=== PATIENT | female | born 1950 | race Caucasian/White ===

== ENCOUNTER → 2018-08-27 10:09 | Outpatient (REF) | payer BC, SELFPAY ==
[2018-08-27 13:32] LABS: Basophils % 0.8 % (0.1-2.0); Eosinophils # 0.2 K/mm3 (0.0-0.4); Eosinophils % 3.8 % (0.1-12.0); Hematocrit 43.3 % (37.0-47.0); Hemoglobin 13.6 g/dL (12.2-16.2); Lymphocytes # 1.8 K/mm3 (0.7-4.5); Lymphocytes % 32.3 K/mm3 (10-50); Mean Corpuscular HGB Conc 31.3 g/dL (31.8-35.4); Mean Corpuscular Hemoglobin 28.9 pg (27.0-31.2); Mean Corpuscular Volume 92.3 fl (81-99); Mean Platelet Volume 8.8 fl (7.4-10.4); Monocytes # 0.3 K/mm3 (0.1-1.0); Monocytes % 5.5 % (1.7-9.3); Neutrophils # 3.2 K/mm3 (1.8-7.8); Neutrophils % 57.6 % (37.0-80.0); Platelet Count 273 K/mm3 (142-424); Red Cell Distribution Width 13.9 % (11.5-17.5); White Blood Count 5.5 K/mm3 (4.8-10.8)
[2018-08-27 13:48] LABS: Alanine Aminotransferase 41 U/L (12-78); Albumin Level 3.7 gm/dL (3.4-5.0); Alkaline Phosphatase 96 U/L (46-116); Anion Gap 10.8 mEq/L (5-15); Aspartate Amino Transferase 30 U/L (15-37); Bilirubin,Total 0.4 mg/dL (0.2-1.0); Blood Urea Nitrogen 12 mg/dL (7-18); Calcium 9.2 mg/dL (8.5-10.1); Carbon Dioxide 28 mmol/L (21.0-32.0); Chloride 109 mmol/L (98-107); Chol/HDL Ratio 4.2 (1-3.5); Cholesterol 234 mg/dL (140-200); Creatinine,Serum 0.69 mg/dL (0.55-1.02); Estimated Glomerular Filt Rate 85 ml/min (>60); Free T4 (Free Thyroxine) 0.94 ng/dl (0.76-1.46); GFR (African American) 103 ML/MIN (>60); Globulin 3.6 gm/dl (1.3-3.2); Glucose 95 mg/dL (74-106); HDL Cholesterol 56 mg/dL (29-89); LDL Cholesterol 155 mg/dL (0-130); Potassium 4.8 mmoL/L (3.5-5.1); Sodium 143 mmol/L (136-145); Thyroid Stimulating Hormone 1.84 uIU/ml (0.358-3.740); Total Protein,Serum 7.3 gm/dL (6.4-8.2); Triglycerides 117 mg/dL (30-200); VLDL Cholesterol 23 mg/dL (0-40)
== END ==
LOC: LAB 10:09
PROVIDERS: PCP Emergency Medicine; Visit Provider Emergency Medicine
DX: R53.83 Other fatigue (principal)
CPT/HCPCS: 80053; 80061; 84439; 84443; 85025

== ENCOUNTER → 2019-07-23 08:39 | Outpatient (CLI) | payer BC, SELFPAY ==
--- NOTE | 2019-07-23 08:39 | MM_ITS ---
PROCEDURE: MM DIG SCREENING MAMM BI W/CAD CLINICAL INDICATION: Routine Screening Mammogram There is a history of breast cancer in patient's sister diagnosed at age 35 COMPARISON: DMSB DIG MAMM-SCREEN LYNDON from 02/24/2015 DMSB DIG MAMM-SCREEN LYNDON from 03/01/2016 DMSB DIG MAMM-SCREEN LYNDON W/CAD from 03/14/2017 TECHNIQUE: Standard CC and MLO images were obtained. R2 CAD reviewed. FINDINGS: Moderate diffuse fibroglandular densities are seen in both breasts and the findings are mostly bilateral and symmetrical. However there is a small asymmetric density deep lateral right breast best seen on the CC view which was seen previously but has increased in size slightly since the previous 2 exams. It is difficult to definitely localized on the MLO view. Recommend the patient return for spot compression CC view and 90 degree lateral view and ultrasound for additional evaluation. There are no suspicious microcalcifications. IMPRESSION: Moderate breast density with possible interval change in asymmetric density right breast BI-RAD Category: 0 Need Additional Imaging Evaluation FOLLOW-UP: IMM Immediate Follow-up Recommended (A letter has been sent to the patient regarding results of the study.) Dictated by: Dr. Andre Irizarry MD 07/24/2019 16:25 <Electronically signed by Dr. Andre Irizarry MD in [place]> 07/24/2019 16:25
== END ==
PROVIDERS: PCP Emergency Medicine; Visit Provider Obstetrics & Gynecology
DX: Z12.31 Encounter for screening mammogram for malignant neoplasm of breast (principal)
CPT/HCPCS: 77067

== ENCOUNTER → 2019-08-02 12:39 | Outpatient (CLI) | payer BC, SELFPAY ==
--- NOTE | 2019-08-02 12:40 | MM_ITS ---
PROCEDURE: MM DIG MAMM DX UNILAT RT CAD CLINICAL INDICATION: Dx Mammogram Right Breast- Abnormal Mamm COMPARISON: DMSB DIGITAL MAMM-SCREEN BILATERAL from 10/15/2012 DMDXUR DIG MAMM-DX UNILATERAL-RT from 10/25/2012 DMSB DIG MAMM-SCREEN LYNDON from 11/11/2013 DMSB DIG MAMM-SCREEN LYNDON from 02/24/2015 DMSB DIG MAMM-SCREEN LYNDON from 03/01/2016 DMSB DIG MAMM-SCREEN LYNDON W/CAD from 03/14/2017 MM DIG SCREENING MAMM BI W/CAD from 07/23/2019 US BREAST RT COMPLETE from 08/02/2019 TECHNIQUE: Standard CC and MLO images were obtained. Spot-compression MLO and CC views were obtained as well. R2 CAD reviewed. FINDINGS: Scattered fibroglandular densities are seen in the central portion of the breast. Again noted is a small benign-appearing nodular density central portion of the breast best seen on the CC view but also seen on the spot MLO view and this has benign features. Ultrasound performed the same date showed no ultrasound correlation. No other abnormality is noted IMPRESSION: Fibrofatty parenchyma with no suspicious lesion seen and no abnormality on ultrasound examination, recommend the patient return to normal yearly screening mammography BI-RAD Category: 2 Benign Finding(s) FOLLOW-UP: 1YR 1 Year Follow-up (A letter has been sent to the patient regarding results of the study.) Dictated by: Dr. Andre Irizarry MD 08/09/2019 09:[address] Andre Irizarry MD in [place] 08/09/2019 09:16
--- NOTE | 2019-08-02 12:40 | US_ITS ---
PROCEDURE: US BREAST RT COMPLETE CLINICAL INDICATION: US Right Breast- Abnormal Mammogram COMPARISON: DMSB DIG MAMM-SCREEN LYNDON W/CAD from 03/14/2017 MM DIG SCREENING MAMM BI W/CAD from 07/23/2019 MM DIG MAMM DX UNILAT RT CAD from 08/02/2019 FINDINGS: Please see combined mammogram and ultrasound report of 08/02/2019. A 6 mm cyst is noted at 6 o'clock which may account for the mammographic abnormality which appears benign IMPRESSION: Benign findings, no evidence of malignancy Dictated by: Ayaz Tracy MD 08/13/2019 16:35 Electronically signed by Ayaz Tracy MD in [place] 08/13/2019 16:35
== END ==
PROVIDERS: PCP Emergency Medicine; Visit Provider Obstetrics & Gynecology
DX: R92.8 Other abnormal and inconclusive findings on diagnostic imaging of breast (principal)
CPT/HCPCS: 76641; 77065

== ENCOUNTER → 2020-05-19 08:15 | Outpatient (CLI) | payer BC, SELFPAY ==
--- NOTE | 2020-05-19 08:24 | XR_ITS ---
PROCEDURE: XR LUMBAR SPINE 2-3V CLINICAL INDICATION: lbp with rle radic pain to quadricep Low back pain COMPARISON: No exams were available for comparison FINDINGS: There are 6 lumbar segments. There is degenerative disc disease is at L4-5 at L5-L6. No fracture or dislocation. No lytic or blastic change. There is some mild angulation involving the lower sacrum which could be due to an old fracture. IMPRESSION: Degenerative changes with possible old sacral fracture Dictated by: Ayaz Tracy MD 05/19/2020 16:32 Electronically signed by Ayaz Tracy MD in [place] 05/19/2020 16:32
== END ==
PROVIDERS: PCP Family Medicine; Visit Provider Family Medicine
DX: M54.5 Low back pain (principal)
CPT/HCPCS: 72100

== ENCOUNTER → 2020-08-04 08:39 | Outpatient (CLI) | payer BC, SELFPAY ==
--- NOTE | 2020-08-04 08:43 | MM_ITS ---
PROCEDURE: MM DIG SCREENING MAMM BI W/CAD Digital Breast Tomosynthesis Included CLINICAL INDICATION: SCREENING There is a history of breast cancer patient's sister. There has been previous cyst aspiration left breast with benign findings COMPARISON: MG DMSB DIG MAMM-SCREEN LYNDON W/CAD from 03/14/2017 MG MM DIG SCREENING MAMM BI W/CAD from 07/23/2019 MG MM DIG MAMM DX UNILAT RT CAD from 08/02/2019 TECHNIQUE: Standard CC and MLO images and 3D Tomosynthesis was obtained. R2 CAD reviewed. FINDINGS: Mild to moderate fibroglandular densities are seen in the central portions of both breast and the findings are fairly symmetrical bilaterally. There is a stable small benign appearing nodular density lower outer quadrant right breast. There is no suspicious lesion and no suspicious microcalcifications. IMPRESSION: Fibrofatty parenchyma with no suspicious lesions seen BI-RAD Category: 2 Benign Finding(s) FOLLOW-UP: 1YR 1 Year Follow-up (A letter has been sent to the patient regarding results of the study.) Dictated by: Dr. Andre Irizarry MD 08/07/2020 08:13 Dr. Andre Irizarry MD in [place] 08/07/2020 08:13
== END ==
PROVIDERS: PCP Emergency Medicine; Visit Provider Family Medicine
DX: Z12.31 Encounter for screening mammogram for malignant neoplasm of breast (principal)
CPT/HCPCS: 77063; 77067

== ENCOUNTER → 2020-09-01 17:38 | Outpatient (CLI) | payer BC, SELFPAY ==
[2020-09-01 18:30] LABS: Basophils # 0.1 K/mm3 (0-0.2); Eosinophils # 0.3 K/mm3 (0.0-0.4); Eosinophils % 4.5 % (0.1-12.0); Hemoglobin 13.8 g/dL (12.2-16.2); Lymphocytes # 1.9 K/mm3 (0.7-4.5); Lymphocytes % 29.9 % (10-50); Mean Corpuscular HGB Conc 31.4 g/dL (31.8-35.4); Mean Corpuscular Hemoglobin 29.6 pg (27.0-31.2); Mean Corpuscular Volume 94.3 fl (81-99); Mean Platelet Volume 10.3 fl (7.4-10.4); Monocytes # 0.4 K/mm3 (0.1-1.0); Monocytes % 7.1 % (1.7-9.3); Neutrophils # 3.6 K/mm3 (1.8-7.8); Neutrophils % 57.5 % (37.0-80.0); Platelet Count 267 K/mm3 (142-424); Red Blood Count 4.66 M/mm3 (4.20-5.40); Red Cell Distribution Width 13.4 % (11.5-17.5); White Blood Count 6.3 K/mm3 (4.8-10.8)
[2020-09-01 18:38] LABS: Alanine Aminotransferase 23 U/L (12-78); Albumin Level 4.4 g/dl (3.5-5.0); Albumin/Globulin Ratio 1.5 (1.1-1.8); Alkaline Phosphatase 95 U/L (38-126); Anion Gap 13.4 mEq/L (5-15); Aspartate Amino Transferase 34 U/L (14-36); Bilirubin,Total 0.6 mg/dl (0.2-1.3); Blood Urea Nitrogen 13 mg/dl (7-17); Calcium 9.8 mg/dl (8.4-10.2); Carbon Dioxide 27 mmol/L (22.0-30.0); Chloride 106 mmol/L (98-107); Chol/HDL Ratio 2.8 (1-3.5); Cholesterol 156 mg/dl (140-200); Estimated Glomerular Filt Rate 100 ml/min (>60); GFR (African American) 121 ML/MIN (>60); Glucose 97 mg/dl (74-100); HDL Cholesterol 55 mg/dl (40-60); Potassium 5.4 mmoL/L (3.5-5.1); Sodium 141 mmol/L (136-145); Total Protein,Serum 7.4 g/dl (6.3-8.2); Triglycerides 95 mg/dl (30-150); VLDL Cholesterol 19 mg/dL (0-40)
[2020-09-01 18:50] LABS: Direct LDL Cholesterol 75.87 mg/dL (100-129)
[2020-09-01 18:54] LABS: 25-OH Vitamin D, Total 59.1 ng/mL (30-100)
[2020-09-01 18:55] LABS: Free T4 (Free Thyroxine) 1.33 ng/dl (0.78-2.19)
[2020-09-01 19:08] LABS: Thyroid Stimulating Hormone 1.33 uIU/mL (0.465-4.68)
== END ==
PROVIDERS: Visit Provider Emergency Medicine
DX: E55.9 Vitamin D deficiency, unspecified (principal); R69 Illness, unspecified
CPT/HCPCS: 80053; 80061; 82306; 84439; 84443; 85025

== ENCOUNTER → 2020-09-23 08:53 | Outpatient (CLI) | payer BC, SELFPAY ==
--- NOTE | 2020-09-23 08:59 | XR_ITS ---
PROCEDURE: XR FOOT WT BEARING RT 3V CLINICAL INDICATION: pain COMPARISON: CR FTL3 FOOT-LT-3 VIEWS from 04/26/2013 CR FTR3 FOOT-RT-3 VIEWS from 04/26/2013 FINDINGS: Prior bunionectomy at 1st metatarsal distally. Cortical screw is present. Hypertrophic changes are present at the distal aspect of the 1st meta tarsal. The joint spaces are well-preserved. No significant degenerative/arthritic changes. No erosive changes evident. Other findings:None. IMPRESSION: Postsurgical changes with hypertrophy of the distal aspect of the 1st metatarsal Dictated by: Ayaz Tracy MD 09/23/2020 12:45 Ayaz Tracy MD in [place] 09/23/2020 12:45
--- NOTE | 2020-09-23 08:59 | XR_ITS ---
PROCEDURE: XR FOOT WT BEARING LT 3V CLINICAL INDICATION: pain COMPARISON: CR FTL3 FOOT-LT-3 VIEWS from 04/26/2013 CR FTR3 FOOT-RT-3 VIEWS from 04/26/2013 FINDINGS: No fracture or dislocation. No lytic or blastic change. There is normal mineralization. There has been prior surgery at the distal aspect of the 1st metatarsal with [address] Prior bunionectomy. No calcaneal spur evident. There is borderline pes planus. Other findings:None. IMPRESSION: Borderline pes planus with postsurgical changes Dictated by: Ayaz Tracy MD 09/23/2020 12:43 Ayaz Tracy MD in [place] 09/23/2020 12:43
== END ==
PROVIDERS: PCP Emergency Medicine; Visit Provider Podiatrist
DX: M79.672 Pain in left foot (principal); M79.671 Pain in right foot
CPT/HCPCS: 73630

== ENCOUNTER → 2021-07-09 11:46 | Outpatient (CLI) | payer BC, SELFPAY | PROVIDERS: PCP Emergency Medicine; Visit Provider Emergency Medicine | DX: Z20.822 Contact with and (suspected) exposure to COVID-19 (principal) | CPT/HCPCS: U0003 ==

== ENCOUNTER → 2021-12-28 16:00 | Outpatient (CLI) | payer MEDICARE, SELFPAY ==
[2021-12-28 18:58] LABS: Basophils # 0.1 K/mm3 (0-0.2); Basophils % 1.9 % (0.1-2.0); Eosinophils # 0.3 K/mm3 (0.0-0.4); Eosinophils % 3.8 % (0.1-12.0); Hematocrit 45.1 % (37.0-47.0); Hemoglobin 14.2 g/dL (12.2-16.2); Lymphocytes # 1.3 K/mm3 (0.7-4.5); Lymphocytes % 19.2 % (10-50); Mean Corpuscular HGB Conc 31.5 g/dL (31.8-35.4); Mean Corpuscular Hemoglobin 29.5 pg (27.0-31.2); Mean Corpuscular Volume 93.8 fl (81-99); Mean Platelet Volume 11.2 fl (7.4-10.4); Monocytes # 0.4 K/mm3 (0.1-1.0); Monocytes % 5.6 % (1.7-9.3); Neutrophils # 4.8 K/mm3 (1.8-7.8); Neutrophils % 69.4 % (37.0-80.0); Platelet Count 274 K/mm3 (142-424); Red Blood Count 4.81 M/mm3 (4.20-5.40); Red Cell Distribution Width 14.3 % (11.5-17.5)
[2021-12-28 19:40] LABS: Alanine Aminotransferase 25 U/L (12-78); Albumin Level 4.4 g/dl (3.5-5.0); Albumin/Globulin Ratio 1.5 (1.1-1.8); Alkaline Phosphatase 80 U/L (38-126); Anion Gap 12.1 mEq/L (5-15); Aspartate Amino Transferase 39 U/L (14-36); Bilirubin,Total 0.6 mg/dl (0.2-1.3); Blood Urea Nitrogen 13 mg/dl (7-17); Calcium 9.5 mg/dl (8.4-10.2); Carbon Dioxide 25 mmol/L (22.0-30.0); Chloride 107 mmol/L (98-107); Cholesterol 164 mg/dl (140-200); Estimated Glomerular Filt Rate 122 ml/min (>60); GFR (African American) 148 ML/MIN (>60); Globulin 2.9 g/dL (1.3-3.2); Glucose 89 mg/dl (74-100); HDL Cholesterol 54 mg/dl (40-60); Potassium 4.1 mmoL/L (3.5-5.1); Sodium 140 mmol/L (136-145); Total Protein,Serum 7.3 g/dl (6.3-8.2); Triglycerides 82 mg/dl (30-150); VLDL Cholesterol 16 mg/dL (0-40)
[2021-12-28 19:51] LABS: Direct LDL Cholesterol 89.27 mg/dL (100-129)
== END ==
PROVIDERS: Visit Provider Family Medicine
DX: E55.9 Vitamin D deficiency, unspecified (principal); E78.5 Hyperlipidemia, unspecified
CPT/HCPCS: 80053; 80061; 85025

== ENCOUNTER → 2022-06-08 15:34 | Outpatient (CLI) | payer MEDICARE, SELFPAY ==
--- NOTE | 2022-06-08 15:39 | XR_ITS ---
FINAL REPORT CLINICAL HISTORY: pain COMPARISON: 09/23/2020 FINDINGS: RIGHT FOOT Three views were obtained. There is no acute fracture or dislocation. There is postoperative change in the 1st metatarsal. There are mild degenerative changes of the 1st metatarsophalangeal joint. Findings are overall stable since previous. No soft tissue abnormality is identified. IMPRESSION: Degenerative and postoperative change, stable. Reviewed, Interpreted and Dictated by Stanton Simeon III, MD Transcribed by Debbie Guajardo Authenticated and [facility]
--- NOTE | 2022-06-08 15:39 | XR_ITS ---
FINAL REPORT CLINICAL HISTORY: pain COMPARISON: 09/23/2020 FINDINGS: LEFT FOOT Three views were obtained. There is no acute fracture or dislocation. There is postoperative change in the 1st metatarsal. There is mild degenerative change of the 1st metatarsophalangeal joint. The bony alignment appears stable. No soft tissue abnormality is identified. IMPRESSION: Degenerative and postoperative change, stable. Reviewed, Interpreted and Dictated by Stanton Simeon III, MD Transcribed by Debbie Guajardo Authenticated and [facility]
== END ==
PROVIDERS: PCP Family Medicine; Visit Provider Podiatrist
DX: L84 Corns and callosities (principal); M79.671 Pain in right foot; M79.672 Pain in left foot; Z98.890 Other specified postprocedural states
CPT/HCPCS: 73630

== ENCOUNTER → 2023-02-07 10:09 | Outpatient (CLI) | payer MEDICARE, SELFPAY ==
[2023-02-07 13:38] LABS: Basophils # 0.1 K/mm3 (0-0.2); Basophils % 1.2 % (0.1-2.0); Eosinophils # 0.2 K/mm3 (0.0-0.4); Hematocrit 42.6 % (37.0-47.0); Hemoglobin 13.8 g/dL (12.2-16.2); Lymphocytes # 1.5 K/mm3 (0.7-4.5); Mean Corpuscular HGB Conc 32.3 g/dL (31.8-35.4); Mean Corpuscular Hemoglobin 29.4 pg (27.0-31.2); Mean Corpuscular Volume 91.1 fl (81-99); Mean Platelet Volume 9.8 fl (7.4-10.4); Monocytes # 0.4 K/mm3 (0.1-1.0); Monocytes % 7.6 % (1.7-9.3); Neutrophils # 3.3 K/mm3 (1.8-7.8); Neutrophils % 60.4 % (37.0-80.0); Platelet Count 285 K/mm3 (142-424); Red Blood Count 4.68 M/mm3 (4.20-5.40); Red Cell Distribution Width 14.1 % (11.5-17.5); White Blood Count 5.4 K/mm3 (4.8-10.8)
[2023-02-07 13:45] LABS: Alanine Aminotransferase 36 U/L (12-78); Albumin Level 4.6 g/dl (3.5-5.0); Albumin/Globulin Ratio 1.6 (1.1-1.8); Alkaline Phosphatase 96 U/L (38-126); Anion Gap 11.1 mEq/L (5-15); Aspartate Amino Transferase 38 U/L (14-36); Bilirubin,Total 0.5 mg/dl (0.2-1.3); Blood Urea Nitrogen 10 mg/dl (7-17); Calcium 9.1 mg/dl (8.4-10.2); Carbon Dioxide 27 mmol/L (22.0-30.0); Chloride 104 mmol/L (98-107); Chol/HDL Ratio 3.2 (1-3.5); Cholesterol 171 mg/dl (140-200); Estimated Glomerular Filt Rate 99 ml/min (>60); GFR (African American) 120 ML/MIN (>60); Globulin 2.8 g/dL (1.3-3.2); Glucose 90 mg/dl (74-100); HDL Cholesterol 54 mg/dl (40-60); Potassium 4.1 mmoL/L (3.5-5.1); Sodium 138 mmol/L (136-145); Total Protein,Serum 7.4 g/dl (6.3-8.2); Triglycerides 127 mg/dl (30-150); VLDL Cholesterol 25 mg/dL (0-40)
[2023-02-07 13:56] LABS: Direct LDL Cholesterol 85.24 mg/dL (100-129)
[2023-02-07 14:15] LABS: Hemoglobin A1C 5.2 % (4.0-6.0); Thyroid Stimulating Hormone 0.99 uIU/mL (0.465-4.68)
== END ==
PROVIDERS: PCP Family Medicine; Visit Provider Family Medicine
DX: E78.5 Hyperlipidemia, unspecified (principal); E55.9 Vitamin D deficiency, unspecified; F41.9 Anxiety disorder, unspecified; E11.9 Type 2 diabetes mellitus without complications
CPT/HCPCS: 80053; 80061; 83036; 84443; 85025

== ENCOUNTER → 2023-02-23 12:43 | Outpatient (CLI) | payer MEDICARE, SELFPAY ==
--- NOTE | 2023-02-23 12:43 | MM_ITS ---
PROCEDURE INFORMATION: Exam: MG Bilateral Screening 3D Mammography Exam date and time: 02/23/2023 12:49 PM Age: 72 years old Clinical indication: Screening examination. Her sister had breast cancer at age 35. TECHNIQUE: Imaging protocol: Bilateral Screening tomosynthesis and 2D mammography including computer-aided detection (CAD) when performed. COMPARISON: 1. MG MM DIG SCREENING MAMM BI W/CAD 08/04/2020 9:09 AM 2. MG MM DIG MAMM DX UNILAT RT CAD 08/02/2019 2:09 PM 3. MG MM DIG SCREENING MAMM BI W/CAD 07/23/2019 8:58 AM 4. MG DMSB DIG MAMM-SCREEN LYNDON W/CAD 03/14/2017 11:16 AM FINDINGS: MAMMOGRAPHY: Breast composition: The breasts are heterogeneously dense, which may obscure small masses. Mass: No suspicious mass. Architectural distortion: None. Calcifications: No suspicious calcifications. Asymmetric density: None. Skin thickening: None. Axillary adenopathy: None. IMPRESSION: No mammographic evidence of malignancy. Annual screening is recommended unless otherwise clinically indicated. ASSESSMENT: BI-RADS Category 1: Negative
== END ==
PROVIDERS: PCP Family Medicine; Visit Provider Family Medicine
DX: Z12.31 Encounter for screening mammogram for malignant neoplasm of breast (principal)
CPT/HCPCS: 77063; 77067

== ENCOUNTER 2023-06-06 11:56 | Day surgery (SDC) | payer MEDICARE, SELFPAY ==
[2023-06-06 12:17] VITALS: BP 125/88; PULSE 68; RESP 18; TEMP 36.4; O2SAT 94; BMI 25.7
--- NOTE | 2023-06-06 12:38 | EXP.ANES.CKL ---
[facility] Disclaimer: The information contained in this section may have been updated after the patient was seen, as this information can be updated by other users. Medical History Family history of breast cancer in sister Hallux limitus of right foot Osteoarthritis of feet, bilateral Post-menopausal atrophic vaginitis Surgical History H/O: hysterectomy History of bunionectomy of both great toes Family History (Updated 06/06/23 @ 12:24 by Marline Padron RN) Other Family history of cancer Social History (Updated 06/06/23 @ 12:24 by Marline Padron RN) Smoking Status: Never smoker alcohol intake: never substance use type: denies use current occupational status: retired Travel in the last 8 weeks: None household members: spouse housing: house [facility] Anesthesia Checklist Patient Identification Patient Identification: Verbal (Name & ) Structural Data Admitted From: Home Planned Operative Procedure/s: egd Consent for Planned Operative Procedure(s) Verified: Yes Airway Assessment C-Spine Mobility Assessed: Yes TMJ Mobility Assessed: Yes Dentition: Good Dentition Neurological Assessment Level of Consciousness: Awake, Alert and Appropriate Anesthesia Plan Anesthesia Risk discussed: Yes Anesthesia Plan: Verified ASA Class: II Anesthesia Type: MAC
--- NOTE | 2023-06-06 13:22 | SUR.PREOP ---
EGD cancelled per Dr. Mittal after pt c/o of intermittent chest pressure. Pt is not experiencing this today but does on occasion and was one reason she was seeking the EGD to be done. Pt to see cardiology for consult today at 2 and notified BJ in office to set up a Barium swallow before setting up a follow up in his office.
--- NOTE | 2023-06-06 13:27 | SUR.PREOP ---
Pt dressed, IV out, and given instruction about cardiology consult at 2. Kyrie's office to call pt with appointment time for barium swallow and a follow up appt. Verbalized understanding and escorted to elevator.
== END 2023-06-06 13:22 | disposition home or self-care (01) ==
PROVIDERS: PCP Family Medicine; Visit Provider Surgery
PROC: 0DJ08ZZ Inspection of Upper Intestinal Tract, Via Natural or Artificial Opening Endoscopic (ICD-10-PCS; CPT 43235; principal; 2023-06-06 13:00)
DX: Z53.09 Procedure and treatment not carried out because of other contraindication (principal); K21.9 Gastro-esophageal reflux disease without esophagitis; R07.89 Other chest pain
CPT/HCPCS: 43239

== ENCOUNTER → 2023-06-09 10:47 | Outpatient (CLI) | payer MEDICARE, SELFPAY ==
--- NOTE | 2023-06-09 10:47 | FL_ITS ---
FINAL REPORT CLINICAL HISTORY: .1:08 FLUORO TIME FINDINGS: ESOPHAGRAM HISTORY: Dysphagia. PROCEDURE: The patient ingested barium. Effervescent crystals were also administered. Spot films were obtained. Fluoroscopy time: 1 minute 8 seconds. 14 radiographs were obtained. FINDINGS: No esophageal stricture is identified. There is a small sliding-type hiatal hernia. Gastroesophageal reflux was demonstrated to the mid esophagus. A 13 mm barium tablet passes through the esophagus without delay. There was esophageal dysmotility. IMPRESSION: Small sliding-type hiatal hernia with gastroesophageal reflux. Esophageal dysmotility. Films reviewed , interpreted and dictated by Dr. Fay Butler. Transcribed by Edil Rivera PA-C. Reviewed, Interpreted and Dictated by Fay Butler MD Transcribed by SHEN Ames Authenticated and [facility]
== END ==
PROVIDERS: PCP Family Medicine; Visit Provider Surgery
DX: R13.10 Dysphagia, unspecified (principal); R06.09 Other forms of dyspnea
CPT/HCPCS: 74220

== ENCOUNTER → 2023-08-28 09:30 | Outpatient (CLI) | payer MEDICARE, SELFPAY | PROVIDERS: PCP Student in an Organized Health Care Education/Training Program; Visit Provider Student in an Organized Health Care Education/Training Program | DX: N39.0 Urinary tract infection, site not specified (principal); B96.29 Other Escherichia coli [E. coli] as the cause of diseases classified elsewhere | CPT/HCPCS: 87086 ==

== ENCOUNTER 2024-02-12 13:28 | Outpatient (CLI) | payer MEDICARE, SELFPAY ==
[2024-02-12 13:27] LABS: Basophils # 0.1 K/mm3 (0-0.2); Basophils % 1.2 % (0.1-2.0); Eosinophils # 0.2 K/mm3 (0.0-0.4); Hematocrit 43.2 % (37.0-47.0); Hemoglobin 14.2 g/dL (12.2-16.2); Lymphocytes # 1.5 K/mm3 (0.7-4.5); Lymphocytes % 28.3 % (10-50); Mean Corpuscular HGB Conc 32.9 g/dL (31.8-35.4); Mean Corpuscular Hemoglobin 30.7 pg (27.0-31.2); Mean Corpuscular Volume 93.2 fl (81-99); Mean Platelet Volume 9.7 fl (7.4-10.4); Monocytes # 0.4 K/mm3 (0.1-1.0); Monocytes % 6.9 % (1.7-9.3); Neutrophils # 3.2 K/mm3 (1.8-7.8); Neutrophils % 59.6 % (37.0-80.0); Platelet Count 216 K/mm3 (142-424); Red Blood Count 4.64 M/mm3 (4.20-5.40); Red Cell Distribution Width 14.4 % (11.5-17.5); White Blood Count 5.4 K/mm3 (4.8-10.8)
[2024-02-12 13:39] LABS: Alanine Aminotransferase 68 U/L (12-78); Albumin Level 4.4 g/dl (3.5-5.0); Albumin/Globulin Ratio 1.4 (1.1-1.8); Alkaline Phosphatase 107 U/L (38-126); Anion Gap 10.8 mEq/L (5-15); Aspartate Amino Transferase 64 U/L (14-36); Bilirubin,Total 0.6 mg/dl (0.2-1.3); Blood Urea Nitrogen 11 mg/dl (7-17); Calcium 9.7 mg/dl (8.4-10.2); Carbon Dioxide 26 mmol/L (22.0-30.0); Chloride 107 mmol/L (98-107); Chol/HDL Ratio 4.3 (1-3.5); Cholesterol 173 mg/dl (140-200); Estimated Glomerular Filt Rate 99 ml/min (>60); GFR (African American) 119 ML/MIN (>60); Globulin 3.1 g/dL (1.3-3.2); Glucose 100 mg/dl (74-100); HDL Cholesterol 40 mg/dl (40-60); Potassium 3.8 mmoL/L (3.5-5.1); Sodium 140 mmol/L (136-145); Total Protein,Serum 7.5 g/dl (6.3-8.2); Triglycerides 112 mg/dl (30-150); VLDL Cholesterol 22 mg/dL (0-40)
[2024-02-12 13:50] LABS: Direct LDL Cholesterol 86.83 mg/dL (100-129)
[2024-02-12 13:58] LABS: 25-OH Vitamin D, Total 47.5 ng/mL (30-100)
[2024-02-12 14:10] LABS: Thyroid Stimulating Hormone 1.01 uIU/mL (0.465-4.68)
== END 2024-02-12 23:59 ==
LOC: LAB.DROPOF 13:28
PROVIDERS: PCP Physician Assistant; Visit Provider Physician Assistant
DX: R53.83 Other fatigue (principal); I10 Essential (primary) hypertension; E78.5 Hyperlipidemia, unspecified; E55.9 Vitamin D deficiency, unspecified; Z68.25 Body mass index [BMI] 25.0-25.9, adult
CPT/HCPCS: 80053; 80061; 82306; 84443; 85025

== ENCOUNTER 2024-02-14 07:44 | Outpatient (CLI) | payer MEDICARE, SELFPAY ==
[2024-02-15 10:59] LABS: HBsAg Screen Negative (Negative); HCV Ab Non Reactive (Non Reactive); Hep A Ab, IGM Negative (Negative); Hep B Core Ab, IgM Negative (Negative)
== END 2024-02-14 23:59 ==
LOC: LAB 07:45
PROVIDERS: PCP Physician Assistant; Visit Provider Physician Assistant
DX: R10.11 Right upper quadrant pain (principal)
CPT/HCPCS: 36415; 80074

== ENCOUNTER 2024-02-21 07:09 | Outpatient (CLI) | payer MEDICARE, SELFPAY ==
--- NOTE | 2024-02-21 07:10 | US_ITS ---
FINAL REPORT CLINICAL HISTORY: elevated liver enzymes FINDINGS: RIGHT UPPER QUADRANT ULTRASOUND Sonographic images of the right upper quadrant were obtained. The pancreas is partially obscured.The liver has an unremarkable appearance.The gallbladder appears normal without evidence of gallstones.The common duct measures 3 mm. Limited images of the right kidney are normal. IMPRESSION: No acute process. Reviewed, Interpreted and Dictated by Stanton Simeon III, MD Transcribed by Debbie Guajardo Authenticated and [facility]
== END 2024-02-21 23:59 ==
LOC: RAD 07:10
PROVIDERS: PCP Physician Assistant; Visit Provider Physician Assistant
DX: R74.8 Abnormal levels of other serum enzymes (principal)
CPT/HCPCS: 76705

== ENCOUNTER 2024-02-29 14:43 | Outpatient (CLI) | payer MEDICARE, SELFPAY ==
--- NOTE | 2024-02-29 14:43 | MM_ITS ---
PROCEDURE INFORMATION: Exam: MG Bilateral Screening 3D Mammography Exam date and time: 02/29/2024 2:38 PM Age: 73 years old Clinical indication: Screening mammogram TECHNIQUE: Imaging protocol: Bilateral Screening tomosynthesis and 2D mammography including computer-aided detection (CAD) when performed. COMPARISON: 1. MG MM DIG SCREENING MAMM BI W/CAD 02/23/2023 12:49 PM 2. MG MM DIG SCREENING MAMM BI W/CAD 08/04/2020 9:09 AM 3. MG MM DIG MAMM DX UNILAT RT CAD 08/02/2019 2:09 PM 4. MG MM DIG SCREENING MAMM BI W/CAD 07/23/2019 8:58 AM FINDINGS: MAMMOGRAPHY: Breast composition: There are scattered areas of fibroglandular density. Mass: None. Architectural distortion: No new or suspicious architectural distortion. Calcifications: No new or suspicious calcifications are present Asymmetric density: No new or suspicious asymmetric density is present Skin thickening: None. Axillary adenopathy: None. IMPRESSION: No mammographic evidence of malignancy. Recommend annual screening mammography unless otherwise clinically indicated. ASSESSMENT: BI-RADS category 1: Negative.
== END 2024-02-29 23:59 ==
LOC: RAD 14:43
PROVIDERS: PCP Physician Assistant; Visit Provider Physician Assistant
DX: Z12.31 Encounter for screening mammogram for malignant neoplasm of breast (principal)
CPT/HCPCS: 77063; 77067

== ENCOUNTER 2024-10-11 14:23 | Outpatient (CLI) | payer MEDICARE, SELFPAY ==
--- NOTE | 2024-10-11 14:26 | XR_ITS ---
FINAL REPORT TECHNIQUE: Chest PA & Lateral CLINICAL HISTORY: acute cough, COVID-19 COMPARISON: None FINDINGS: 2 views of the chest were performed. The heart size is normal. The mediastinum is within normal limits. There is a calcified granuloma in the right middle lobe. The lungs are otherwise clear. There are no pleural effusions. There is no pneumothorax. The bony thorax appears intact. IMPRESSION: No acute cardiopulmonary process. Reviewed, Interpreted and Dictated by Alfie Schneider MD Transcribed by Anat Raymond Authenticated and [facility]
== END 2024-10-11 23:59 | disposition home or self-care (01) ==
LOC: RAD 14:24
PROVIDERS: PCP Internal Medicine; Visit Provider Nurse Practitioner Family
DX: R05.1 Acute cough (principal); U07.1 COVID-19
CPT/HCPCS: 71046

== ENCOUNTER 2025-03-04 09:15 | Outpatient (CLI) | payer MEDICARE, SELFPAY ==
[2025-03-04 13:06] LABS: Basophils # 0.1 K/mm3 (0-0.2); Basophils % 0.7 % (0.1-2.0); Eosinophils # 0.3 K/mm3 (0.0-0.4); Eosinophils % 3.9 % (0.1-12.0); Hematocrit 41.6 % (37.0-47.0); Hemoglobin 13.4 g/dL (12.2-16.2); Lymphocytes # 1.4 K/mm3 (0.7-4.5); Lymphocytes % 16.4 % (10-50); Mean Corpuscular HGB Conc 32.2 g/dL (31.8-35.4); Mean Corpuscular Hemoglobin 29.1 pg (27.0-31.2); Mean Corpuscular Volume 90.2 fl (81-99); Mean Platelet Volume 11.7 fl (7.4-10.4); Monocytes # 0.8 K/mm3 (0.1-1.0); Neutrophils # 5.8 K/mm3 (1.8-7.8); Neutrophils % 69.5 % (37.0-80.0); Nucleated Red Blood Cells # 0 10^3/uL; Nucleated Red Blood Cells % 0 %; Platelet Count 229 K/mm3 (142-424); Red Blood Count 4.61 M/mm3 (4.20-5.40); Red Cell Distribution Width 14.2 % (11.5-17.5); Red Cell Distribution Width-SD 46.8 fL; White Blood Count 8.4 K/mm3 (4.8-10.8)
[2025-03-04 13:40] LABS: Alanine Aminotransferase 18 U/L (12-78); Albumin Level 4.1 g/dl (3.5-5.0); Albumin/Globulin Ratio 1.2 (1.1-1.8); Alkaline Phosphatase 91 U/L (38-126); Anion Gap 12.7 mEq/L (5-15); Aspartate Amino Transferase 27 U/L (14-36); Bilirubin,Total 0.6 mg/dl (0.2-1.3); Blood Urea Nitrogen 14 mg/dl (7-17); Calcium 9.2 mg/dl (8.4-10.2); Carbon Dioxide 26 mmol/L (22.0-30.0); Chloride 104 mmol/L (98-107); Chol/HDL Ratio 5.6 (1-3.5); Cholesterol 269 mg/dl (140-200); Estimated Glomerular Filt Rate 98 ml/min (>60); GFR (African American) 119 ML/MIN (>60); Globulin 3.3 g/dL (1.3-3.2); Glucose 84 mg/dl (74-100); HDL Cholesterol 48 mg/dl (40-60); Potassium 4.7 mmoL/L (3.5-5.1); Sodium 138 mmol/L (136-145); Total Protein,Serum 7.4 g/dl (6.3-8.2); Triglycerides 153 mg/dl (30-150); VLDL Cholesterol 31 mg/dL (0-40)
[2025-03-04 13:51] LABS: Direct LDL Cholesterol 162.91 mg/dL (100-129)
[2025-03-04 16:41] LABS: Hemoglobin A1C 5.2 % (4.0-6.0)
== END 2025-03-04 23:59 | disposition home or self-care (01) ==
LOC: LAB.DROPOF 03-05 10:05
PROVIDERS: PCP Internal Medicine; Visit Provider Internal Medicine
DX: Z13.1 Encounter for screening for diabetes mellitus (principal); Z13.220 Encounter for screening for lipoid disorders
CPT/HCPCS: 80053; 80061; 83036; 85025

== ENCOUNTER 2025-03-27 08:56 | Outpatient (CLI) | payer MEDICARE, SELFPAY ==
--- NOTE | 2025-03-27 09:30 | XR_ITS ---
FINAL REPORT TECHNIQUE: Bone densitometry calculations of the lumbar spine and left hip were obtained. CLINICAL HISTORY: Recommended screening COMPARISON: None FINDINGS: Using L1-4, the bone mineral density of the spine is 1.001 g/cm2, corresponding to T-score of -0.4 and a Z score of 1.8. This is within the range of normal limits. Using the left hip, the bone mineral density of the total hip is 0.737 g/cm2, corresponding to a T-score of -1.7 and a Z-score of 0.0. This is within the range of osteopenia. FRAX 10 year fracture risk is 0.9% for a hip fracture and 8.7% for a major osteoporotic fracture. NOTE: T-score: Standard deviation compared with peak bone mass of young adult mean. *Following the recommendations of the International Society of Bone densitometry, classification of hip BMD is based on the lower of two T-scores; total hip or femoral neck. IMPRESSION: 1. Bone mineral density of the lumbar spine within the range of normal limits. 2. Bone mineral density of the left femoral neck within the range of osteopenia. Reviewed, Interpreted and Dictated by Fay Butler MD Transcribed by Marline Chau Authenticated and [facility]
--- NOTE | 2025-03-27 10:00 | MM_ITS ---
PROCEDURE INFORMATION: Exam: MG Bilateral Screening 3D Mammography Exam date and time: 03/27/2025 9:53 AM Age: 74 years old Clinical indication: Screening mammogram TECHNIQUE: Imaging protocol: Bilateral Screening tomosynthesis and 2D mammography including computer-aided detection (CAD) when performed. COMPARISON: 1. MG MM DIG SCREENING MAMM BI W/CAD 02/29/2024 2:38 PM 2. MG MM DIG SCREENING MAMM BI W/CAD 02/23/2023 12:49 PM 3. MG MM DIG SCREENING MAMM BI W/CAD 08/04/2020 9:09 AM 4. MG MM DIG MAMM DX UNILAT RT CAD 08/02/2019 2:09 PM FINDINGS: MAMMOGRAPHY: Breast composition: There are scattered areas of fibroglandular density. Mass: None. Architectural distortion: No new or suspicious architectural distortion. Calcifications: No new or suspicious calcifications are present Asymmetric density: No new or suspicious asymmetric density is present Skin thickening: None. Axillary adenopathy: None. IMPRESSION: No mammographic evidence of malignancy. Recommend annual screening mammography unless otherwise clinically indicated. ASSESSMENT: BI-RADS category 1: Negative.
== END 2025-03-27 23:59 | disposition home or self-care (01) ==
LOC: RAD 08:57
PROVIDERS: PCP Internal Medicine; Visit Provider Internal Medicine
DX: Z12.31 Encounter for screening mammogram for malignant neoplasm of breast (principal); Z13.820 Encounter for screening for osteoporosis; M85.88 Other specified disorders of bone density and structure, other site
CPT/HCPCS: 77063; 77067; 77080